=== PATIENT | male | born 1970 | race Hispanic/Latino ===

== ENCOUNTER 2022-08-13 12:25 | Emergency (ER) | payer OTHER ==
[~2022-08-13] VITALS: Ht 154.2 cm; Wt 95.7 kg
[~2022-08-13 12:25] MED LIST: CHERATUSSIN AC118 ML PO; CIPRO500 MG PO; TRIBENZOR 20-51 EACH PO
[2022-08-13] MEDS: HYDROCODONE/APAP 5MG-325MG TAB PO ONE (13:19)
[2022-08-13] MEDS ORDERED: HYDROCODON-ACE1 EA11 PO (14:57)
== END 2022-08-13 15:41 | disposition home or self-care (01) ==
LOC: ER 12:53
DX: S92.001A Unspecified fracture of right calcaneus, initial encounter for closed fracture (principal); M06.9 Rheumatoid arthritis, unspecified; Z79.899 Other long term (current) drug therapy; W10.9XXA Fall (on) (from) unspecified stairs and steps, initial encounter; Y92.007 Garden or yard of unspecified non-institutional (private) residence as the place of occurrence of the external cause; Y93.H2 Activity, gardening and landscaping
CPT/HCPCS: 99284